=== PATIENT | female | born 1965 | race Caucasian/White ===

== ENCOUNTER 2016-06-14 18:16 | Inpatient (IN) | payer MEDICARE, OTHER ==
[~2016-06-14] VITALS: Ht 149.9 cm; Wt 75.0 kg
[2016-06-14] MEDS ORDERED: HIV MEDS PO (18:26)
[2016-06-14] MEDS ORDERED: HALO5 PO (18:28)
[2016-06-14] MEDS ORDERED: TOPI25 PO (18:28)
[2016-06-14 20:14] LABS: HEMATOCRIT 38.7 % (36-46); HEMOGLOBIN 12.9 g/dL (12.0-16.0); MEAN CORPUSCULAR HEMOGLOBIN 30.6 pg (26.0-34.0); MEAN CORPUSCULAR HGB CONC 33.2 G/dL (31.0-37.0); MEAN CORPUSCULAR VOLUME 92 fL (80-100); PLATELET COUNT (AUTO) 251 K/uL (150-450); RED BLOOD CELL COUNT(AUTO) 4.21 MIL/uL (4.00-5.20); RED CELL DISTRIBUTION WIDTH 13.5 % (11.5-14.5)
[2016-06-14 20:21] LABS: WHITE BLOOD COUNT (AUTO) 32.2 K/uL (4.5-11.0)
[2016-06-14 20:24] LABS: ANION GAP 14 mmol/L (8-16); CALCIUM, TOTAL 8.9 mg/dL (8.8-10.5); CARBON DIOXIDE 20 mmol/L (22-29); CHLORIDE 98 mmol/L (98-107); CREATININE 1.47 mg/dL (0.60-1.30); GLOMERULAR FILTR. RATE CALC 37 mL/min (>60); POTASSIUM 3.8 mmol/L (3.5-5.1); SODIUM SERUM 132 mmol/L (136-145); UREA NITROGEN, BLOOD 15 mg/dL (7-18)
[2016-06-14 20:27] LABS: INR 1.1 (0.9-1.1); PROTHROMBIN TIME 11.9 SEC (9.4-11.6)
[2016-06-14 20:32] LABS: LACTIC ACID 1.1 mmol/L (0.4-2.0)
[2016-06-14 20:33] LABS: APPEARANCE,URINE CLEAR (CLEAR); GLUCOSE, URINE (UA) NEGATIVE (NEGATIVE); KETONES,URINE 15 mg/dL (NEGATIVE); LEUKOCYTE ESTERASE ,URINE NEGATIVE (NEGATIVE); OCCULT BLOOD,URINE LARGE (NEGATIVE); PH,URINE 6.5 (5.0-8.0); PROTEIN,URINE SEE CONFIRM (NEGATIVE)
[2016-06-14 20:34] LABS: ADD UA MICROSCOPIC YES
[2016-06-14 20:51] LABS: B-TYPE NATRIURETIC PEPTIDE 209 pg/mL (0-100)
[2016-06-14 20:53] LABS: ALANINE AMINOTRANSFERASE 13 U/L (12-78); ALBUMIN 2.4 g/dL (3.4-5.0); ASPARTATE AMINOTRANSFERASE 21 U/L (15-37); CREATINE KINASE MB 1.9 ng/mL (0-5); CREATINE KINASE, TOTAL 374 U/L (26-192); TOTAL PROTEIN, SERUM 8.4 g/dL (6.4-8.2)
[2016-06-14 21:08] LABS: BAND NEUTROPHILS % (MANUAL) 11 % (1-5); LYMPHOCYTES % (MANUAL) 4 % (22-44); TOTAL CELLS COUNTED 100
[2016-06-14 21:19] LABS: SQUAMOUS EPITHELIAL CELL,UR Moderate /LPF (None Seen); SULFOSALICYLIC ACID,URINE 3+ (Negative)
[2016-06-14 21:20] LABS: INFLUENZA TYPE B NEGATIVE FOR TYPE B (NEGATIVE)
[2016-06-14] MEDS ORDERED: AZITHROMYCIN 500 MG/NS 250 ML IV ONE (22:00)
[2016-06-14] MEDS ORDERED: SODIUM CHLORIDE 0.9% 1,000 ML IV ONE (22:00)
[2016-06-14] MEDS ORDERED: CefTRIAXone 1 GM/DEXTROSE 50 ML IV ONE (22:00)
[2016-06-15 00:50] VITALS: BP_SYST 107; BP_SYST 124; BP_DIAS 61; BP_DIAS 71
[2016-06-15] MEDS ORDERED: ONDANSETRON HCL 4 MG/2 ML VIAL IVP PRN (01:30)
[2016-06-15] MEDS ORDERED: ACETAMINOPHEN 325 MG TABLET PO PRN (01:30)
[2016-06-15] MEDS ORDERED: ALBUTEROL SULFATE 2.5 MG/0.5 ML NEB SOLUTION NEB PRN (01:30)
[2016-06-15] MEDS ORDERED: ZOLPIDEM TARTRATE 5 MG TABLET PO PRN (01:30)
[2016-06-15] MEDS ORDERED: BISACODYL 10 MG RECTAL RECTAL SUPPOSITORY PR PRN (01:30)
[2016-06-15] MEDS ORDERED: IPRATROPIUM BROMIDE 0.5 MG/2.5 ML NEB SOLUTION NEB PRN (01:30)
[2016-06-15] MEDS ORDERED: HYDROCODONE/ACETAMINOPHEN 5-325 MG TABLET PO PRN (01:30)
[2016-06-15] MEDS ORDERED: MORPHINE SULFATE 2 MG/ML SYRINGE IVP PRN (01:30)
[2016-06-15] MEDS ORDERED: MAGNESIUM HYDROXIDE SUSPENSION 30 ML UDCUP PO PRN (01:30)
[2016-06-15] MEDS ORDERED: 0.9% SODIUM CHLORIDE 5 ML NEB SOLUTION NEB ONE (01:53)
[2016-06-15] MEDS ORDERED: HEPARIN SODIUM,PORCINE 5,000 UNITS/ML VIAL SQ SCH (08:00)
[2016-06-15] MEDS ORDERED: DOCUSATE SODIUM 100 MG CAPSULE PO SCH (09:00)
[2016-06-15] MEDS ORDERED: TOPIRAMATE 25 MG TABLET PO SCH (09:00)
[2016-06-15] MEDS ORDERED: HALOPERIDOL 5 MG TABLET PO SCH (09:00)
[2016-06-15] MEDS ORDERED: PANTOPRAZOLE SODIUM 40 MG/VIAL IVP SCH (09:00)
[2016-06-15] MEDS ORDERED: CefTRIAXone 1 GM/DEXTROSE 50 ML IV SCH (22:00)
[2016-06-15] MEDS ORDERED: AZITHROMYCIN 500 MG/NS 250 ML IV SCH (23:00)
== END 2016-06-15 05:05 | disposition left against medical advice (07) | DRG 871 ==
LOC: EMS 18:18 → 6N 22:41
PROVIDERS: ADMIT Hospitalist; ATTEND Hospitalist
DX: A41.9 Sepsis, unspecified organism (principal); E43 Unspecified severe protein-calorie malnutrition; J18.9 Pneumonia, unspecified organism; E87.1 Hypo-osmolality and hyponatremia; J44.0 Chronic obstructive pulmonary disease with (acute) lower respiratory infection; F20.9 Schizophrenia, unspecified; F31.9 Bipolar disorder, unspecified; H50.9 Unspecified strabismus; F17.210 Nicotine dependence, cigarettes, uncomplicated; Z98.890 Other specified postprocedural states; Z88.0 Allergy status to penicillin; Z88.2 Allergy status to sulfonamides; Z88.8 Allergy status to other drugs, medicaments and biological substances; Z79.899 Other long term (current) drug therapy; Z68.33 Body mass index [BMI] 33.0-33.9, adult; Z20.6 Contact with and (suspected) exposure to human immunodeficiency virus [HIV]; Z21 Asymptomatic human immunodeficiency virus [HIV] infection status
CPT/HCPCS: 83605; 87040; 87804; 93005; 94640; 96365; 96366; 96367; 99285; J0456; J0696; J7030

== ENCOUNTER 2019-01-29 07:12 | Emergency (ER) | payer MEDICARE, OTHER ==
[~2019-01-29] VITALS: Ht 149.9 cm; Wt 54.5 kg
[~2019-01-29 07:12] MED LIST: ABAC300T2 PO; ADV500 IH; ATAZ150 PO; BUSP5TAB20 PO; HALO5TAB2 PO; HIV MEDS PO; HYDR25TA PO; LISI-662 PO; QUET100T PO; QUET200T PO; RISP2 PO; RITO100C PO; TOPI25 PO; [UNRECOGNIZED DRUG - OTHER] PO
[2019-01-29] MEDS ORDERED: BICT1TAB PO (07:31)
[2019-01-29] MEDS ORDERED: [UNRECOGNIZED DRUG - OTHER] PO (07:31)
[2019-01-29 08:20] LABS: BASOPHILS % (AUTO) 0.2 % (0.0-2.0); EOSINOPHILS % (AUTO) 0.1 % (1.0-6.0); HEMATOCRIT 35.9 % (36-46); HEMOGLOBIN 12.2 g/dL (12.0-16.0); LYMPHOCYTES # (AUTO) 0.6 K/uL (1.0-4.8); LYMPHOCYTES % (AUTO) 6.9 % (22.0-44.0); MEAN CORPUSCULAR HEMOGLOBIN 29.5 pg (26.0-34.0); MEAN CORPUSCULAR VOLUME 87 fL (80-100); MONOCYTES # (AUTO) 0.5 K/uL (0.1-1.0); MONOCYTES % (AUTO) 6.8 % (2.0-9.0); NEUTROPHILS # (AUTO) 6.9 K/uL (1.8-7.7); PLATELET COUNT (AUTO) 188 K/uL (150-450); RED BLOOD CELL COUNT(AUTO) 4.15 MIL/uL (4.00-5.20); RED CELL DISTRIBUTION WIDTH 16.7 % (11.5-14.5)
[2019-01-29 08:28] LABS: CALCIUM, TOTAL 9.4 mg/dL (8.8-10.5); CREATININE 1.41 mg/dL (0.60-1.30); POTASSIUM 3.7 mmol/L (3.5-5.1)
[2019-01-29 08:37] LABS: LACTIC ACID 1.3 mmol/L (0.4-2.0)
[2019-01-29 08:43] LABS: ALBUMIN 2.5 g/dL (3.4-5.0); BILIRUBIN,TOTAL 0.8 mg/dL (0.1-1.0); TOTAL PROTEIN, SERUM 8.6 g/dL (6.4-8.2)
[2019-01-29 10:57] LABS: APPEARANCE,URINE CLEAR (CLEAR); BILIRUBIN,URINE NEGATIVE (NEGATIVE); GLUCOSE, URINE (UA) NEGATIVE (NEGATIVE); KETONES,URINE NEGATIVE (NEGATIVE); LEUKOCYTE ESTERASE ,URINE NEGATIVE (NEGATIVE); NITRATE,URINE NEGATIVE (NEGATIVE); OCCULT BLOOD,URINE TRACE (NEGATIVE); PROTEIN,URINE SEE CONFIRM (NEGATIVE); UROBILINOGEN,URINE 0.2 mg/dL (<=1.0)
[2019-01-29 11:02] LABS: AMPHET/METH SCREEN,URINE NEGATIVE (NEGATIVE); BARBITURATE SCREEN, URINE NEGATIVE (NEGATIVE); BENZODIAZEPINES SCREEN,URINE NEGATIVE (NEGATIVE); CANNABINOID SCREEN,URINE NEGATIVE (NEGATIVE); COCAINE SCREEN,URINE NEGATIVE (NEGATIVE); METHADONE SCREEN, URINE NEGATIVE (NEGATIVE); OPIATE SCREEN,URINE NEGATIVE (NEGATIVE)
[2019-01-29 11:08] LABS: PHENCYCLIDINE SCREEN,URINE NEGATIVE (NEGATIVE)
[2019-01-29] MEDS ORDERED: CefTRIAXone SODIUM 1 GM/VIAL IM ONE (11:15)
[2019-01-29] MEDS ORDERED: LIDOCAINE/PF 1% 2 ML VIAL IM ONE (11:15)
[2019-01-29] MEDS ORDERED: PredniSONE 20 MG TABLET PO ONE (11:15)
[2019-01-29] MEDS ORDERED: IPRATROPIUM BROMIDE 0.5 MG/2.5 ML NEB SOLUTION NEB ONE (11:15)
[2019-01-29] MEDS ORDERED: ALBUTEROL SULFATE 2.5 MG/0.5 ML NEB SOLUTION NEB ONE (11:15)
[2019-01-29 11:19] LABS: SULFOSALICYLIC ACID,URINE 1+ (Negative)
[2019-01-29 11:20] LABS: BACTERIA,URINE None Seen /HPF (None Seen); RBC,URINE None Seen /HPF (0-2); SQUAMOUS EPITHELIAL CELL,UR Few /LPF (None Seen); WBC,URINE 0-2 /HPF (0-5)
[2019-01-29 12:28] VITALS: BP 102/69
== END 2019-01-29 12:31 | disposition home or self-care (01) ==
LOC: EMS 07:12
DX: J98.01 Acute bronchospasm (principal); J40 Bronchitis, not specified as acute or chronic; J44.9 Chronic obstructive pulmonary disease, unspecified; F31.9 Bipolar disorder, unspecified; F20.9 Schizophrenia, unspecified; F17.210 Nicotine dependence, cigarettes, uncomplicated; Z98.890 Other specified postprocedural states; Z79.899 Other long term (current) drug therapy; Z88.0 Allergy status to penicillin; Z88.2 Allergy status to sulfonamides; Z88.8 Allergy status to other drugs, medicaments and biological substances
CPT/HCPCS: 36415; 71045; 80053; 80307; 81001; 83605; 83880; 84484; 85025; 87040; 93005; 94640; 96372; 99285; 99406; J0696; J3490; J7512

== ENCOUNTER 2019-07-03 23:49 | Inpatient (IN) | payer MEDICARE, OTHER ==
[~2019-07-03] VITALS: Ht 152.4 cm; Wt 56.0 kg
[~2019-07-03 23:49] MED LIST changes: +BICT1TAB PO; -HIV MEDS PO; +HYDR-1475 PO; -HYDR25TA PO; +[UNRECOGNIZED DRUG - OTHER] PO
[2019-07-04] MEDS ORDERED: ALBUTEROL SULFATE 5 MG/ML 20 ML NEB SOLN [BULK] NEB ONE (00:10)
[2019-07-04] MEDS ORDERED: 0.9% SODIUM CHLORIDE 10 ML SYRINGE IVP PRN ×2 (00:15→04:15)
[2019-07-04] MEDS ORDERED: IPRATROPIUM BROMIDE 0.5 MG/2.5 ML NEB SOLUTION NEB ONE (00:15)
[2019-07-04] MEDS ORDERED: VANCOMYCIN HCL 1 GM/D5% WATER 200 ML IV ONE (00:30)
[2019-07-04] MEDS ORDERED: SODIUM CHLORIDE 0.9% 1,000 ML IV ONE (00:30)
[2019-07-04] MEDS ORDERED: AZITHROMYCIN 500 MG/NS 250 ML IV ONE (00:30)
[2019-07-04] MEDS ORDERED: ACETAMINOPHEN 1000 MG/ISO-OSM 100 ML IV ONE (00:30)
[2019-07-04] MEDS ORDERED: 0.9% SODIUM CHLORIDE 15 ML NEB SOLUTION NEB ONE (00:30)
[2019-07-04] MEDS: CEFEPIME HCL 2 GM/VIAL IM ONE ×2 (00:46→00:52)
[2019-07-04] MEDS ORDERED: CEFEPIME HCL 2 GM in DEXTROSE 5%-WATER 50 ML IV ONE ×2 (01:00→09:00)
[2019-07-04 01:02] LABS: EOSINOPHILS % (AUTO) 3.1 % (1.0-6.0); HEMATOCRIT 39.6 % (36-46); HEMOGLOBIN 13.6 g/dL (12.0-16.0); LYMPHOCYTES # (AUTO) 0.8 K/uL (1.0-4.8); LYMPHOCYTES % (AUTO) 10.8 % (22.0-44.0); MEAN CORPUSCULAR HGB CONC 34.2 G/dL (31.0-37.0); MEAN CORPUSCULAR VOLUME 88 fL (80-100); MONOCYTES # (AUTO) 0.6 K/uL (0.1-1.0); MONOCYTES % (AUTO) 8.5 % (2.0-9.0); NEUTROPHILS # (AUTO) 5.6 K/uL (1.8-7.7); NEUTROPHILS % (AUTO) 76.6 % (40.0-70.0); PLATELET COUNT (AUTO) 163 K/uL (150-450); RED BLOOD CELL COUNT(AUTO) 4.52 MIL/uL (4.00-5.20); RED CELL DISTRIBUTION WIDTH 13.1 % (11.5-14.5)
[2019-07-04 01:14] LABS: ANION GAP 8 mmol/L (8-16); CALCIUM, TOTAL 9.1 mg/dL (8.8-10.5); CARBON DIOXIDE 25 mmol/L (22-29); CHLORIDE 103 mmol/L (98-107); GLOMERULAR FILTR. RATE CALC 47 mL/min (>60); GLUCOSE,RANDOM 95 mg/dL (70-110); POTASSIUM 4.3 mmol/L (3.5-5.1); SODIUM SERUM 136 mmol/L (136-145); UREA NITROGEN, BLOOD 14 mg/dL (7-18)
[2019-07-04 01:20] LABS: ALANINE AMINOTRANSFERASE 24 U/L (12-78); ALBUMIN 2.6 g/dL (3.4-5.0); ALKALINE PHOSPHATASE 107 U/L (46-116); ASPARTATE AMINOTRANSFERASE 51 U/L (15-37); BILIRUBIN,TOTAL 0.6 mg/dL (0.1-1.0); TOTAL PROTEIN, SERUM 8.3 g/dL (6.4-8.2)
[2019-07-04 01:29] LABS: LACTIC ACID 1.2 mmol/L (0.4-2.0)
[2019-07-04 01:33] LABS: B-TYPE NATRIURETIC PEPTIDE 301 pg/mL (0-100)
[2019-07-04 01:35] LABS: INFLUENZA TYPE A NEGATIVE FOR TYPE A (NEGATIVE); INFLUENZA TYPE B NEGATIVE FOR TYPE B (NEGATIVE)
[2019-07-04] MEDS ORDERED: ACETAMINOPHEN 325 MG TABLET PO PRN ×2 (04:15→08:15)
[2019-07-04 04:41] LABS: APPEARANCE,URINE CLEAR (CLEAR); BILIRUBIN,URINE NEGATIVE (NEGATIVE); GLUCOSE, URINE (UA) NEGATIVE (NEGATIVE); KETONES,URINE NEGATIVE (NEGATIVE); LEUKOCYTE ESTERASE ,URINE NEGATIVE (NEGATIVE); NITRATE,URINE NEGATIVE (NEGATIVE); OCCULT BLOOD,URINE NEGATIVE (NEGATIVE); PROTEIN,URINE SEE CONFIRM (NEGATIVE); UROBILINOGEN,URINE 0.2 mg/dL (<=1.0)
[2019-07-04 04:52] LABS: SULFOSALICYLIC ACID,URINE 1+ (Negative)
[2019-07-04 05:00] LABS: BACTERIA,URINE Rare /HPF (None Seen); RBC,URINE 0-2 /HPF (0-2); SQUAMOUS EPITHELIAL CELL,UR Few /LPF (None Seen); WBC,URINE 0-2 /HPF (0-5)
[2019-07-04] MEDS ORDERED: *CLINICAL-CEFEPIME DOSING CLINICAL ONE (08:15)
[2019-07-04] MEDS ORDERED: MAGNESIUM HYDROXIDE SUSPENSION 30 ML UDCUP PO PRN (08:15)
[2019-07-04] MEDS ORDERED: LORazepam 2 MG/ML VIAL IVP PRN (08:15)
[2019-07-04] MEDS ORDERED: ALBUTEROL SULFATE 2.5 MG/0.5 ML NEB SOLUTION NEB PRN (08:15)
[2019-07-04 09:00] VITALS: BP 143/56
[2019-07-04] MEDS: FAMOTIDINE 20 MG TABLET PO SCH ×2 (09:00→10:45)
[2019-07-04] MEDS ORDERED: VANCOMYCIN HCL 1.25 GM in DEXTROSE 5%-WATER 250 ML IV ONE (09:00)
[2019-07-04] MEDS ORDERED: SODIUM CHLORIDE 0.9% 250 ML IV ONE (10:16)
[2019-07-04] MEDS: RisperiDONE 3 MG TABLET PO SCH ×2 (12:35→21:00)
[2019-07-04] MEDS: BusPIRone HCL 5 MG TABLET PO SCH ×2 (12:35→21:00)
[2019-07-04] MEDS: QUEtiapine FUMARATE 100 MG TABLET PO SCH (12:35)
[2019-07-04 12:59] VITALS: BP 145/73
[2019-07-04 20:33] LABS: ABG A-A DIFF O2 48.9 mmHg (10-20.0); ABG BASE EXCESS -3.7 mmol/L (-2.0-3.0); ABG CARBOXYHEMOGLOBIN 0.8 % (0.0-1.5); ABG HCO3 22.4 mmol/L (22.0-26.0); ABG METHEMOGLOBIN 0.3 % (0.0-1.5); ABG OXYGEN SATURATION 94.5 % (95.0-98.0); ABG OXYHEMOGLOBIN 93.5 % (94.0-100.0); ABG PCO2 27 mmHg (35-45); ABG PH 7.477 (7.35-7.450); ABG TOTAL HEMOGLOBIN 12.9 G/dL (12.0-18.0); SOURCE, BLOOD GAS ARTERIAL; TEMPERATURE, FAHRENHEIT, BG 98.6 FAHREN (96.0-98.6)
[2019-07-04 20:34] LABS: O2 DEVICE,BLOOD GAS ROOM AIR (ROOM AIR); SITE, BLOOD GAS RT RADIAL
[2019-07-04 20:39] VITALS: BP 135/85
[2019-07-04] MEDS: QUEtiapine FUMARATE 200 MG TABLET PO SCH (21:00)
[2019-07-04] MEDS ORDERED: PredniSONE 20 MG TABLET PO SCH (21:15)
[2019-07-04] MEDS: PRIMAQUINE PHOSPHATE 26.3 MG [15 MG BASE] TABLET PO SCH (22:00)
[2019-07-05 00:01] VITALS: BP 144/72
[2019-07-05] MEDS ORDERED: SODIUM CHLORIDE 0.9% 250 ML IV ONE ×2 (01:06→01:08)
[2019-07-05] MEDS: CLINDAMYCIN 600 MG/D5% WATER 50 ML IV SCH ×3 (01:11→17:08)
[2019-07-05] MEDS: DOXYCYCLINE HYCLATE 100 MG in DEXTROSE 5%-WATER 100 ML IV SCH ×2 (01:12→12:33)
[2019-07-05] MEDS: CEFEPIME HCL 2 GM in DEXTROSE 5%-WATER 50 ML IV SCH ×2 (02:38→15:11)
[2019-07-05 04:08] VITALS: BP 106/66
[2019-07-05] MEDS: ACETAMINOPHEN 650 MG RECTAL SUPPOSITORY PR PRN ×2 (04:29→10:10)
[2019-07-05] MEDS: VANCOMYCIN HCL 1.25 GM in DEXTROSE 5%-WATER 250 ML IV SCH (07:54)
[2019-07-05] MEDS ORDERED: CEFEPIME HCL 2 GM in DEXTROSE 5%-WATER 50 ML IV SCH (09:00)
[2019-07-05 10:00] VITALS: BP 96/54
[2019-07-05] MEDS: FAMOTIDINE 20 MG TABLET PO SCH (10:10)
[2019-07-05] MEDS: RisperiDONE 3 MG TABLET PO SCH ×2 (10:23→21:00)
[2019-07-05] MEDS: QUEtiapine FUMARATE 100 MG TABLET PO SCH (10:23)
[2019-07-05] MEDS: BusPIRone HCL 5 MG TABLET PO SCH ×2 (10:23→21:00)
[2019-07-05] MEDS: PRIMAQUINE PHOSPHATE 26.3 MG [15 MG BASE] TABLET PO SCH (10:25)
[2019-07-05 12:47] VITALS: BP 91/49
[2019-07-05 17:30] VITALS: BP 89/57
[2019-07-05] MEDS ORDERED: SODIUM CHLORIDE 0.9% 500 ML IV ONE (17:45)
[2019-07-05] MEDS ORDERED: SODIUM CHLORIDE 0.9% 1,000 ML ONE (18:14)
[2019-07-05] MEDS: QUEtiapine FUMARATE 200 MG TABLET PO SCH (21:00)
[2019-07-05] MEDS: PredniSONE 20 MG TABLET PO SCH (21:00)
[2019-07-05] MEDS ORDERED: PredniSONE 10 MG TABLET PO SCH (21:00)
[2019-07-05 21:41] VITALS: BP 93/58
[2019-07-05] MEDS: BICTEGRAV/EMTRICIT/TENOFOV ALA 50-200-25 MG TABLET PO SCH (22:00)
[2019-07-06 00:38] VITALS: BP 107/56
[2019-07-06] MEDS: CLINDAMYCIN 600 MG/D5% WATER 50 ML IV SCH ×2 (01:20→08:37)
[2019-07-06] MEDS: DOXYCYCLINE HYCLATE 100 MG in DEXTROSE 5%-WATER 100 ML IV SCH (01:51)
[2019-07-06] MEDS: CEFEPIME HCL 2 GM in DEXTROSE 5%-WATER 50 ML IV SCH ×2 (03:49→15:00)
[2019-07-06 04:53] VITALS: BP 91/51
[2019-07-06] MEDS: VANCOMYCIN HCL 1.25 GM in DEXTROSE 5%-WATER 250 ML IV SCH (07:00)
[2019-07-06] MEDS: QUEtiapine FUMARATE 100 MG TABLET PO SCH (08:25)
[2019-07-06] MEDS: RisperiDONE 3 MG TABLET PO SCH ×2 (08:25→21:00)
[2019-07-06] MEDS: BusPIRone HCL 5 MG TABLET PO SCH ×2 (08:25→22:01)
[2019-07-06] MEDS: FAMOTIDINE 20 MG TABLET PO SCH (08:25)
[2019-07-06] MEDS: PRIMAQUINE PHOSPHATE 26.3 MG [15 MG BASE] TABLET PO SCH (08:26)
[2019-07-06] MEDS: BICTEGRAV/EMTRICIT/TENOFOV ALA 50-200-25 MG TABLET PO SCH (08:27)
[2019-07-06] MEDS: PredniSONE 20 MG TABLET PO SCH ×2 (08:28→22:02)
[2019-07-06 13:06] LABS: AMPHET/METH SCREEN,URINE NEGATIVE (NEGATIVE); BARBITURATE SCREEN, URINE NEGATIVE (NEGATIVE); BENZODIAZEPINES SCREEN,URINE NEGATIVE (NEGATIVE); CANNABINOID SCREEN,URINE NEGATIVE (NEGATIVE); COCAINE SCREEN,URINE NEGATIVE (NEGATIVE); METHADONE SCREEN, URINE NEGATIVE (NEGATIVE); OPIATE SCREEN,URINE NEGATIVE (NEGATIVE)
[2019-07-06 13:07] LABS: PHENCYCLIDINE SCREEN,URINE NEGATIVE (NEGATIVE)
[2019-07-06] MEDS: CLINDAMYCIN HCL 300 MG CAPSULE PO SCH (16:20)
[2019-07-06] MEDS: QUEtiapine FUMARATE 200 MG TABLET PO SCH (22:01)
[2019-07-06] MEDS: DOXYCYCLINE HYCLATE 100 MG CAPSULE PO SCH (22:02)
[2019-07-07] MEDS: CEFEPIME HCL 2 GM in DEXTROSE 5%-WATER 50 ML IV SCH ×2 (03:00→15:00)
[2019-07-07 05:03] VITALS: BP 105/52
[2019-07-07] MEDS: VANCOMYCIN HCL 1.25 GM in DEXTROSE 5%-WATER 250 ML IV SCH (07:00)
[2019-07-07] MEDS: PRIMAQUINE PHOSPHATE 26.3 MG [15 MG BASE] TABLET PO SCH (08:58)
[2019-07-07] MEDS: BICTEGRAV/EMTRICIT/TENOFOV ALA 50-200-25 MG TABLET PO SCH (08:59)
[2019-07-07] MEDS: RisperiDONE 3 MG TABLET PO SCH ×2 (08:59→21:01)
[2019-07-07] MEDS: FAMOTIDINE 20 MG TABLET PO SCH (08:59)
[2019-07-07] MEDS: PredniSONE 20 MG TABLET PO SCH ×3 (08:59→21:01)
[2019-07-07] MEDS: CLINDAMYCIN HCL 300 MG CAPSULE PO SCH ×3 (08:59→17:08)
[2019-07-07] MEDS: DOXYCYCLINE HYCLATE 100 MG CAPSULE PO SCH ×2 (09:00→21:01)
[2019-07-07] MEDS: BusPIRone HCL 5 MG TABLET PO SCH ×2 (09:00→21:01)
[2019-07-07] MEDS: QUEtiapine FUMARATE 100 MG TABLET PO SCH (09:01)
[2019-07-07 09:20] VITALS: BP 130/96
[2019-07-07 11:07] LABS: HIV INTERPRETATION HIV-1 Positive; HIV-1 ANTIBODY(MULTISPOT) Positive (Negative); HIV-2 ANTIBODY(MULTISPOT) Negative (Negative)
[2019-07-07] MEDS: HALOPERIDOL 5 MG TABLET PO PRN ×2 (12:12→17:08)
[2019-07-07 12:19] VITALS: BP 127/71
[2019-07-07 16:17] VITALS: BP 140/86
[2019-07-07 19:16] VITALS: BP 136/79
[2019-07-07] MEDS: QUEtiapine FUMARATE 200 MG TABLET PO SCH (21:01)
[2019-07-07 23:19] VITALS: BP 129/75
[2019-07-08] MEDS: CLINDAMYCIN HCL 300 MG CAPSULE PO SCH ×4 (00:06→23:46)
[2019-07-08] MEDS: HALOPERIDOL 5 MG TABLET PO PRN (00:06)
[2019-07-08 04:46] VITALS: BP 135/84
[2019-07-08 08:33] VITALS: BP 132/93
[2019-07-08] MEDS: PredniSONE 20 MG TABLET PO SCH ×3 (09:00→21:57)
[2019-07-08] MEDS: PRIMAQUINE PHOSPHATE 26.3 MG [15 MG BASE] TABLET PO SCH (09:15)
[2019-07-08] MEDS: QUEtiapine FUMARATE 100 MG TABLET PO SCH (09:16)
[2019-07-08] MEDS: BICTEGRAV/EMTRICIT/TENOFOV ALA 50-200-25 MG TABLET PO SCH (09:16)
[2019-07-08] MEDS: BusPIRone HCL 5 MG TABLET PO SCH ×2 (09:16→21:57)
[2019-07-08] MEDS: RisperiDONE 3 MG TABLET PO SCH ×2 (09:16→21:56)
[2019-07-08] MEDS: FAMOTIDINE 20 MG TABLET PO SCH (09:16)
[2019-07-08] MEDS: DOXYCYCLINE HYCLATE 100 MG CAPSULE PO SCH ×2 (09:25→21:56)
[2019-07-08 12:15] VITALS: BP 152/80
[2019-07-08 13:19] LABS: EOSINOPHILS % (AUTO) 0 % (1.0-6.0); HEMATOCRIT 39.1 % (36-46); HEMOGLOBIN 13.2 g/dL (12.0-16.0); LYMPHOCYTES # (AUTO) 0.7 K/uL (1.0-4.8); LYMPHOCYTES % (AUTO) 14.7 % (22.0-44.0); MEAN CORPUSCULAR HGB CONC 33.7 G/dL (31.0-37.0); MEAN CORPUSCULAR VOLUME 89 fL (80-100); MONOCYTES # (AUTO) 0.5 K/uL (0.1-1.0); MONOCYTES % (AUTO) 11.2 % (2.0-9.0); NEUTROPHILS # (AUTO) 3.6 K/uL (1.8-7.7); NEUTROPHILS % (AUTO) 73.1 % (40.0-70.0); PLATELET COUNT (AUTO) 193 K/uL (150-450); RED BLOOD CELL COUNT(AUTO) 4.39 MIL/uL (4.00-5.20); RED CELL DISTRIBUTION WIDTH 13.5 % (11.5-14.5)
[2019-07-08 14:29] LABS: ALBUMIN 2.3 g/dL (3.4-5.0); BILIRUBIN,TOTAL 0.4 mg/dL (0.1-1.0); CALCIUM, TOTAL 9.7 mg/dL (8.8-10.5); CREATININE 1.21 mg/dL (0.60-1.30); POTASSIUM 5.1 mmol/L (3.5-5.1)
[2019-07-08 16:51] VITALS: BP 158/108
[2019-07-08 20:16] VITALS: BP 108/68
[2019-07-08] MEDS: QUEtiapine FUMARATE 200 MG TABLET PO SCH (21:57)
[2019-07-08 23:56] VITALS: BP 116/70
[2019-07-09] MEDS: FAMOTIDINE 20 MG TABLET PO SCH (08:44)
[2019-07-09] MEDS: DOXYCYCLINE HYCLATE 100 MG CAPSULE PO SCH ×2 (08:44→20:23)
[2019-07-09] MEDS: CLINDAMYCIN HCL 300 MG CAPSULE PO SCH ×2 (08:44→16:19)
[2019-07-09] MEDS: BusPIRone HCL 5 MG TABLET PO SCH ×2 (08:44→20:23)
[2019-07-09] MEDS: PRIMAQUINE PHOSPHATE 26.3 MG [15 MG BASE] TABLET PO SCH (08:44)
[2019-07-09] MEDS: BICTEGRAV/EMTRICIT/TENOFOV ALA 50-200-25 MG TABLET PO SCH (08:44)
[2019-07-09] MEDS: RisperiDONE 3 MG TABLET PO SCH ×2 (08:45→20:23)
[2019-07-09] MEDS: QUEtiapine FUMARATE 100 MG TABLET PO SCH (08:45)
[2019-07-09] MEDS: HALOPERIDOL 5 MG TABLET PO PRN (08:45)
[2019-07-09] MEDS: PredniSONE 20 MG TABLET PO SCH (08:58)
[2019-07-09 11:17] VITALS: BP 134/96
[2019-07-09 13:40] LABS: ORGANISM ID Not indicated.; S PNEUMO SOURCE Urine; STREP PNEUMONIAE AG URINE Negative (Negative); STREP.PNEUMO BODY FLUID CULT. Not indicated.
[2019-07-09 16:13] VITALS: BP 148/98
[2019-07-09 19:34] VITALS: BP 128/76
[2019-07-09] MEDS: QUEtiapine FUMARATE 200 MG TABLET PO SCH (20:23)
[2019-07-09 23:06] LABS: GLU 6-PHOSPATE DEHYDRO-RBC 4.32 x10E6/uL (3.77-5.28)
[2019-07-09 23:42] VITALS: BP 133/84
[2019-07-10] MEDS: CLINDAMYCIN HCL 300 MG CAPSULE PO SCH ×4 (00:07→23:27)
[2019-07-10 04:29] VITALS: BP 110/68
[2019-07-10 08:21] VITALS: BP 107/73
[2019-07-10] MEDS: PRIMAQUINE PHOSPHATE 26.3 MG [15 MG BASE] TABLET PO SCH (08:37)
[2019-07-10] MEDS: BICTEGRAV/EMTRICIT/TENOFOV ALA 50-200-25 MG TABLET PO SCH (08:39)
[2019-07-10] MEDS: DOXYCYCLINE HYCLATE 100 MG CAPSULE PO SCH ×2 (08:39→21:02)
[2019-07-10] MEDS: FAMOTIDINE 20 MG TABLET PO SCH (08:39)
[2019-07-10] MEDS: BusPIRone HCL 5 MG TABLET PO SCH ×2 (08:40→21:02)
[2019-07-10] MEDS: PredniSONE 20 MG TABLET PO SCH (08:40)
[2019-07-10] MEDS: HALOPERIDOL 5 MG TABLET PO PRN (08:40)
[2019-07-10] MEDS: RisperiDONE 3 MG TABLET PO SCH ×2 (08:40→21:02)
[2019-07-10] MEDS: QUEtiapine FUMARATE 100 MG TABLET PO SCH (08:40)
[2019-07-10 13:15] VITALS: BP 129/55
[2019-07-10 16:00] VITALS: BP 106/70
[2019-07-10] MEDS: QUEtiapine FUMARATE 200 MG TABLET PO SCH (21:05)
[2019-07-10 21:11] VITALS: BP 136/76
[2019-07-11 00:02] VITALS: BP 127/72
[2019-07-11 04:15] VITALS: BP 122/69
[2019-07-11 07:59] VITALS: BP 105/62
[2019-07-11] MEDS: FAMOTIDINE 20 MG TABLET PO SCH (08:37)
[2019-07-11] MEDS: BICTEGRAV/EMTRICIT/TENOFOV ALA 50-200-25 MG TABLET PO SCH (08:37)
[2019-07-11] MEDS: PRIMAQUINE PHOSPHATE 26.3 MG [15 MG BASE] TABLET PO SCH (08:37)
[2019-07-11] MEDS: CLINDAMYCIN HCL 300 MG CAPSULE PO SCH ×2 (08:37→16:23)
[2019-07-11] MEDS: DOXYCYCLINE HYCLATE 100 MG CAPSULE PO SCH ×2 (08:37→21:29)
[2019-07-11] MEDS: QUEtiapine FUMARATE 100 MG TABLET PO SCH (08:38)
[2019-07-11] MEDS: BusPIRone HCL 5 MG TABLET PO SCH ×2 (08:38→21:29)
[2019-07-11] MEDS: PredniSONE 20 MG TABLET PO SCH (08:38)
[2019-07-11] MEDS: RisperiDONE 3 MG TABLET PO SCH ×2 (08:38→21:29)
[2019-07-11 12:04] VITALS: BP 99/65
[2019-07-11] MEDS: CEFUROXIME AXETIL 250 MG TABLET PO SCH ×2 (13:15→21:29)
[2019-07-11 15:59] VITALS: BP 134/87
[2019-07-11 20:50] VITALS: BP 101/71
[2019-07-11] MEDS: QUEtiapine FUMARATE 200 MG TABLET PO SCH (21:29)
[2019-07-12 00:10] VITALS: BP 108/75
[2019-07-12 04:26] VITALS: BP 118/66
[2019-07-12 07:59] VITALS: BP 113/66
[2019-07-12] MEDS: PRIMAQUINE PHOSPHATE 26.3 MG [15 MG BASE] TABLET PO SCH ×2 (08:00→08:55)
[2019-07-12] MEDS: BICTEGRAV/EMTRICIT/TENOFOV ALA 50-200-25 MG TABLET PO SCH ×2 (08:55→09:00)
[2019-07-12] MEDS: FAMOTIDINE 20 MG TABLET PO SCH (08:55)
[2019-07-12] MEDS: CLINDAMYCIN HCL 300 MG CAPSULE PO SCH ×4 (08:56→23:48)
[2019-07-12] MEDS: QUEtiapine FUMARATE 100 MG TABLET PO SCH (08:56)
[2019-07-12] MEDS: CEFUROXIME AXETIL 250 MG TABLET PO SCH ×2 (08:56→20:05)
[2019-07-12] MEDS: BusPIRone HCL 5 MG TABLET PO SCH ×2 (08:56→20:06)
[2019-07-12] MEDS: RisperiDONE 3 MG TABLET PO SCH ×3 (08:56→21:00)
[2019-07-12] MEDS: PredniSONE 20 MG TABLET PO SCH (08:56)
[2019-07-12] MEDS: DOXYCYCLINE HYCLATE 100 MG CAPSULE PO SCH ×2 (08:56→20:05)
[2019-07-12 16:16] VITALS: BP 117/69
[2019-07-12] MEDS: QUEtiapine FUMARATE 200 MG TABLET PO SCH (20:05)
[2019-07-12 20:28] VITALS: BP 105/61
[2019-07-13] VITALS (7 sets, daily range): BP systolic 98–142; BP diastolic 59–79
[2019-07-13] MEDS: HALOPERIDOL 5 MG TABLET PO PRN (08:56)
[2019-07-13] MEDS: RisperiDONE 3 MG TABLET PO SCH ×2 (08:56→20:26)
[2019-07-13] MEDS: QUEtiapine FUMARATE 100 MG TABLET PO SCH (08:56)
[2019-07-13] MEDS: CLINDAMYCIN HCL 300 MG CAPSULE PO SCH ×3 (08:58→23:42)
[2019-07-13] MEDS: PredniSONE 20 MG TABLET PO SCH (08:58)
[2019-07-13] MEDS: DOXYCYCLINE HYCLATE 100 MG CAPSULE PO SCH (08:58)
[2019-07-13] MEDS: FAMOTIDINE 20 MG TABLET PO SCH (08:58)
[2019-07-13] MEDS: BusPIRone HCL 5 MG TABLET PO SCH ×2 (08:58→20:26)
[2019-07-13] MEDS: PRIMAQUINE PHOSPHATE 26.3 MG [15 MG BASE] TABLET PO SCH (08:58)
[2019-07-13] MEDS: CEFUROXIME AXETIL 250 MG TABLET PO SCH ×2 (08:58→20:26)
[2019-07-13] MEDS: BICTEGRAV/EMTRICIT/TENOFOV ALA 50-200-25 MG TABLET PO SCH (08:59)
[2019-07-13] MEDS: QUEtiapine FUMARATE 200 MG TABLET PO SCH (20:26)
[2019-07-14 00:06] LABS: QUANTIFERON+, Nil Value 0.03 IU/mL; QUANTIFERON+,Mitogen Value 0.57 IU/mL; QUANTIFERON+,TB1 Antigen Value 0.03 IU/mL; QUANTIFERON, TB GOLD PLUS Negative (Negative)
[2019-07-14 04:19] VITALS: BP 110/70
[2019-07-14] MEDS: CEFUROXIME AXETIL 250 MG TABLET PO SCH ×2 (08:29→20:52)
[2019-07-14] MEDS: CLINDAMYCIN HCL 300 MG CAPSULE PO SCH ×2 (08:29→16:00)
[2019-07-14] MEDS: QUEtiapine FUMARATE 100 MG TABLET PO SCH (08:29)
[2019-07-14] MEDS: PRIMAQUINE PHOSPHATE 26.3 MG [15 MG BASE] TABLET PO SCH (08:29)
[2019-07-14 08:30] VITALS: BP 110/80
[2019-07-14] MEDS: RisperiDONE 3 MG TABLET PO SCH ×2 (08:30→20:52)
[2019-07-14] MEDS: HALOPERIDOL 5 MG TABLET PO PRN (08:30)
[2019-07-14] MEDS: FAMOTIDINE 20 MG TABLET PO SCH (08:30)
[2019-07-14] MEDS: PredniSONE 20 MG TABLET PO SCH (08:30)
[2019-07-14] MEDS: BICTEGRAV/EMTRICIT/TENOFOV ALA 50-200-25 MG TABLET PO SCH ×2 (08:31→09:00)
[2019-07-14] MEDS: BusPIRone HCL 5 MG TABLET PO SCH ×2 (08:32→20:52)
[2019-07-14 13:26] VITALS: BP 102/74
[2019-07-14] MEDS ORDERED: CEFU250T87 PO (14:58)
[2019-07-14] MEDS ORDERED: CLIN300C9 PO (14:58)
[2019-07-14] MEDS ORDERED: [UNRECOGNIZED DRUG - CODE] PO (15:00)
[2019-07-14] MEDS ORDERED: ATOR10TA69 PO (15:04)
[2019-07-14 16:07] VITALS: BP 116/72
[2019-07-14 20:10] VITALS: BP 108/70
[2019-07-14] MEDS: QUEtiapine FUMARATE 200 MG TABLET PO SCH (20:57)
[2019-07-15 00:17] VITALS: BP 101/62
[2019-07-15] MEDS: CLINDAMYCIN HCL 300 MG CAPSULE PO SCH ×2 (00:41→08:06)
[2019-07-15 04:45] VITALS: BP 109/72
[2019-07-15] MEDS: HALOPERIDOL 5 MG TABLET PO PRN (08:06)
[2019-07-15] MEDS: QUEtiapine FUMARATE 100 MG TABLET PO SCH (08:06)
[2019-07-15] MEDS: FAMOTIDINE 20 MG TABLET PO SCH (08:06)
[2019-07-15] MEDS: BICTEGRAV/EMTRICIT/TENOFOV ALA 50-200-25 MG TABLET PO SCH (08:06)
[2019-07-15] MEDS: RisperiDONE 3 MG TABLET PO SCH (08:06)
[2019-07-15] MEDS: BusPIRone HCL 5 MG TABLET PO SCH (08:07)
[2019-07-15] MEDS: CEFUROXIME AXETIL 250 MG TABLET PO SCH (08:07)
[2019-07-15] MEDS: PRIMAQUINE PHOSPHATE 26.3 MG [15 MG BASE] TABLET PO SCH (08:08)
[2019-07-15 08:10] VITALS: BP 126/84
[2019-07-15] MEDS ORDERED: PredniSONE 20 MG TABLET PO SCH (09:00)
== END 2019-07-15 14:23 | disposition home or self-care (01) | DRG 975 ==
LOC: EMS 23:50 → 5N 07-04 07:34 → 4E 07-14 19:09
PROVIDERS: ADMIT Internal Medicine; ATTEND Internal Medicine
DX: A41.9 Sepsis, unspecified organism (principal); B20 Human immunodeficiency virus [HIV] disease; J44.0 Chronic obstructive pulmonary disease with (acute) lower respiratory infection; J18.9 Pneumonia, unspecified organism; E44.0 Moderate protein-calorie malnutrition; F99 Mental disorder, not otherwise specified; Z91.14 Patient's other noncompliance with medication regimen; J44.9 Chronic obstructive pulmonary disease, unspecified; F20.9 Schizophrenia, unspecified; B95.7 Other staphylococcus as the cause of diseases classified elsewhere; Z68.24 Body mass index [BMI] 24.0-24.9, adult; Z91.19 Patient's noncompliance with other medical treatment and regimen; Z88.0 Allergy status to penicillin; Z87.891 Personal history of nicotine dependence
CPT/HCPCS: 36600; 80074; 80307; 82805; 82955; 83605; 83615; 84145; 85041; 86361; 86480; 86701; 86702; 87040; 87205; 87449; 87635; 87804; 87899; 93005; 93306; 94060; 94644; 99291; G0378; J0131; J0456; J0692; J2060; J3370; J3490; J7030; J7050; J7060

== ENCOUNTER 2019-10-08 00:12 | Inpatient (IN) | payer MEDICARE, MEDICAID ==
[~2019-10-08] VITALS: Ht 154.9 cm; Wt 49.9 kg
[~2019-10-08 00:12] MED LIST changes: -ABAC300T2 PO; -ATAZ150 PO; +ATOR10TA69 PO; -HYDR-1475 PO; -LISI-662 PO; -RISP2 PO; +RISP2TAB23 PO; -RITO100C PO; -[UNRECOGNIZED DRUG - OTHER] PO; -[UNRECOGNIZED DRUG - OTHER] PO
[2019-10-08] MEDS ORDERED: HALOPERIDOL 5 MG TABLET PO PRN (00:45)
[2019-10-08] MEDS ORDERED: ZOLPIDEM TARTRATE 10 MG TABLET PO PRN (00:45)
[2019-10-08] MEDS ORDERED: LORazepam 2 MG TABLET PO PRN (00:45)
[2019-10-08] MEDS ORDERED: ALBUTEROL SULFATE HFA 90 MCG/PUFF 8 GM INHALER IH PRN (08:00)
[2019-10-08] MEDS ORDERED: MAGNESIUM HYDROXIDE SUSPENSION 30 ML UDCUP PO PRN (08:00)
[2019-10-08] MEDS ORDERED: MAG HYDROX/AL HYDROX/SIMETH ES 30 ML SUSPENSION UDCUP PO PRN (08:00)
[2019-10-08] MEDS ORDERED: DOCUSATE SODIUM 100 MG CAPSULE PO PRN (08:00)
[2019-10-08] MEDS ORDERED: GuaiFENesin/D-METHORPHAN [SUGAR-FREE] 200-20MG/10 ML SYRUP UDCUP PO PRN (08:00)
[2019-10-08] MEDS ORDERED: ONDANSETRON HCL 4 MG TABLET PO PRN (08:00)
[2019-10-08] MEDS ORDERED: CloNIDine HCL 0.1 MG TABLET PO PRN (08:00)
[2019-10-08] MEDS ORDERED: IBUPROFEN 400 MG TABLET PO PRN (08:00)
[2019-10-08] MEDS ORDERED: PETROLATUM,WHITE 28 GM JELLY TP PRN (08:00)
[2019-10-08] MEDS ORDERED: ACETAMINOPHEN 325 MG TABLET PO PRN (08:00)
[2019-10-08] MEDS ORDERED: LOPERAMIDE HCL 2 MG CAPSULE PO PRN (08:00)
[2019-10-08] MEDS ORDERED: NICOTINE 14 MG/24 HOUR PATCH TD PRN (08:00)
[2019-10-08 13:56] VITALS: BP 105/64
[2019-10-08] MEDS ORDERED: CLINDAMYCIN HCL 300 MG CAPSULE PO SCH (16:00)
[2019-10-08 18:00] VITALS: BP 84/59
[2019-10-09] MEDS ORDERED: PRIMAQUINE PHOSPHATE 26.3 MG [15 MG BASE] TABLET PO SCH (09:00)
== END 2019-10-08 17:45 | disposition short-term general hospital (02) | DRG 885 ==
LOC: 3EX 00:12
PROVIDERS: ADMIT Psychiatry & Neurology Psychiatry; ATTEND Psychiatry & Neurology Psychiatry
DX: F20.0 Paranoid schizophrenia (principal); N17.9 Acute kidney failure, unspecified; E87.1 Hypo-osmolality and hyponatremia; J44.9 Chronic obstructive pulmonary disease, unspecified; Z87.01 Personal history of pneumonia (recurrent); F17.200 Nicotine dependence, unspecified, uncomplicated; I50.9 Heart failure, unspecified; Z91.19 Patient's noncompliance with other medical treatment and regimen; Z20.828 Contact with and (suspected) exposure to other viral communicable diseases
CPT/HCPCS: G0378